=== PATIENT | female | born 1965 | race Caucasian/White ===

== ENCOUNTER 2022-11-05 10:06 | Emergency (ER) | payer OTHER, BC, SELFPAY ==
[2022-11-05 10:07] VITALS: BP 158/100; PULSE 98; RESP 18; TEMP 36.6; O2SAT 99; BMI 30.4
--- NOTE | 2022-11-05 10:21 | CT_ITS ---
FINAL REPORT CLINICAL HISTORY: neck pain, trauma FINDINGS: CT CERVICAL SPINE Axial CT images were performed through the cervical spine. Coronal and sagittal reformats were submitted and reviewed. This study was performed with techniques to keep radiation doses as low as reasonably achievable (ALARA). Individualized dose reduction techniques using automated exposure control or adjustment of mA and/or kV according to the patient's size were employed. FINDINGS: There is no acute fracture or subluxation. The vertebral alignment is normal. The prevertebral soft tissues are unremarkable. No significant spinal or neural foraminal canal stenosis is seen. There are mild degenerative changes. The facets are normally aligned. Limited images of the lung apices are unremarkable. IMPRESSION: No acute fracture. Reviewed, Interpreted and Dictated by Collin Long III, MD Transcribed by Brandon Aldana Authenticated and [facility]
--- NOTE | 2022-11-05 10:21 | CT_ITS ---
FINAL REPORT TECHNIQUE: Axial images were performed through the lumbar spine by computed tomography. Sagittal reconstruction images were also performed. This study was performed with techniques to keep radiation doses as low as reasonably achievable, (ALARA). Individualized dose reduction techniques using automated exposure control or adjustment of mA and/or kV according to the patient's size were employed. CLINICAL HISTORY: back injury, low back pain FINDINGS: Sagittal reconstruction images demonstrate no acute fracture or subluxation. There is leftward curvature. There are mild and moderate degenerative changes. Axial imaging demonstrates no definite central canal or neuroforaminal narrowing. Note is made of right hydronephrosis. IMPRESSION: No acute fracture. Reviewed, Interpreted and Dictated by Collin Long III, MD Transcribed by Brandon Aldana Authenticated and [facility]
--- NOTE | 2022-11-05 10:29 | PC.NURSE ---
pt to CT
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
[2022-11-05 10:47] VITALS: PULSE 93; O2SAT 97
--- NOTE | 2022-11-05 11:19 | PC.NURSE ---
rounded on pt at this time. no needs at this time.
[2022-11-05 12:10] VITALS: BP 137/93; PULSE 94; RESP 16; TEMP 36.6
== END 2022-11-05 12:12 | disposition home or self-care (01) ==
PROVIDERS: Emergency Provider Emergency Medicine; PCP Internal Medicine
DX: S16.1XXA Strain of muscle, fascia and tendon at neck level, initial encounter (principal); V49.40XA Driver injured in collision with unspecified motor vehicles in traffic accident, initial encounter
CPT/HCPCS: 72125; 72131; 99284; 99285

== ENCOUNTER 2024-08-21 08:07 | Emergency (ER) | payer BC, SELFPAY ==
[2024-08-21 08:20] VITALS: BP 154/86; PULSE 99; RESP 20; TEMP 36.6; O2SAT 97; BMI 30.9
[2024-08-21 08:31] LABS: UTC Strep Screen (Rapid) Negative (Negative)
--- NOTE | 2024-08-21 08:47 | ED_ITS ---
Discharge Plan Disposition Patient Disposition: Home, Self-Care Condition: Good Prescriptions Prescriptions: New fluticasone propionate 50 mcg/actuation spray,suspension 1 spray intranasal DAILY Qty: 16 0RF No Action metformin 500 mg tablet 500 mg PO DAILY hydrochlorothiazide 12.5 mg capsule 12.5 mg PO DAILY valsartan 40 mg Tablet 40 mg PO DAILY Referrals Follow up/Referrals: Taylor Beebe [Primary Care Provider] - See instructions Activity Restrictions/Add. Instructions Additional Instructions/Restrictions: No sign of a bacterial infection. Likely viral. Viruses can take 7-14 days to run their course. Nasal saline and bulb syringe or nose Naomy to remove nasal drainage to help with nasal congestion. Hard to eat, drink, sleep with nasal congestion so important to keep this cleaned out. Monitor temp. Tylenol or Motrin as needed for pain or fever Encourage fluids, water, Gatorade, Powerade, Pedialyte if infant/toddler/child Warm salt water gargles Warm fluids Sore throat lozenges Sleep elevated Humidifier/vaporizer Follow-up immediately for new or worsening symptoms or no noticeable improvement over the next 48-72 hours. Clinical Impressions Clinical Impression: Upper respiratory infection, viral Instructions Patient Instructions: DI for Viral Upper Respiratory Infection -- Adult, Common Cold Print Language Print Language: Spanish Discharge ED Provider: Jamie ([facility] [place] HPI General Stated complaint: sore throat itching in both ears Mode of Arrival: Ambulatory Source of Information: Patient Time Seen by Provider: 08/21/24 08:40 Description of Symptoms (Recalled from Triage Doc. by RN): EAR/THROAT PAIN HEENT Symptoms (Recalled from RN notes): Yes Resp Symptoms (Recalled from RN notes): No Skin Symptoms (Recalled from RN notes): No MS Symptoms (Recalled from RN notes): No Functional Status (Recalled from RN notes): WNL History of Present Illness Provider Complaint: 58-year-old female presents for sore throat and itchy full ears since . Related Data Home Medications ?Medication ?Instructions ?Recorded ?Confirmed hydrochlorothiazide 12.5 mg capsule 12.5 mg PO DAILY 08/21/24 08/21/24 metformin 500 mg tablet 500 mg PO DAILY 08/21/24 08/21/24 valsartan 40 mg tablet 40 mg PO DAILY 08/21/24 08/21/24 Previous Rx's ?Medication ?Instructions ?Recorded fluticasone propionate 50 1 spray intranasal DAILY #16 grams 08/21/24 mcg/actuation nasal spray,suspension Allergies Allergy/AdvReac Type Severity Reaction Status Date / Time No Known Allergies Allergy Verified 11/05/22 10:29 Worker's Comp Is this a Worker's Comp case?: No [facility] Disclaimer: The information contained in this section may have been updated after the patient was seen, as this information can be updated by other users. Social History , [employer]) Smoking Status: Never smoker alcohol intake: never current occupational status: other Travel in the last 8 weeks: Inside the [place] Have you lived/traveled outside [place] in past 30 days?: No Contact w/someone who lives/traveled outside [place] past 30 days?: No Exposure to someone with infectious disease in past 14 days?: No Do you have a fever (greater than 100.4 F or 38 C)?: No Have you tested positive for COVID-19: No Exposed to someone with COVID-19 in past 14 days?: No Do you have a sore throat?: Yes Do you have a cough?: No Do you have any weakness?: No Do you have any diarrhea?: No Are you experiencing any unusual bleeding?: No Do you have any muscle aches/pain?: No Do you have any abdominal pain?: No Are you experiencing loss of taste or smell?: No ROS Obtained: Yes Systems reviewed as appropriate & no additional complaints except as documented Constitutional Constitutional: Reports system reviewed and no additional complaints, except as documented and Reports as per HPI ENT Ears, Nose, Mouth, and Throat: Reports system reviewed and no additional complaints, except as documented, Reports as per HPI, Reports otalgia (Itching, full) and Reports sore throat Physical Exam General General appearance: alert and in no apparent distress Eye Eye exam: Present normal appearance ENT ENT exam: Present mucous membranes moist Expanded ENT Exam TM/Canal exam: Bilateral TM: effusion Throat exam: Present other (Postnasal drainage) Respiratory Respiratory exam: Present normal lung sounds bilaterally Cardiovascular Cardiovascular exam: Present regular rate and normal rhythm Neurological Exam Neurological exam: Present alert and oriented X3 Skin Skin exam: Present warm and intact Medical Decision Making Medical Records Medical records reviewed: Yes I reviewed the patient's medical records. Screening: Per USPSTF and CDC recommendations, given the prevalence of disease in our region, it is our hospital?s policy to screen for HIV and viral Hepatitis for all patients aged 18 and over and those with ongoing risk factors. Sang Inquiry Pt receiving controlled substance: No Vital Signs: 08/21/24 08:20 Temperature 97.9 F Temperature Source Oral Pulse Rate [Left Radial] 99 H Respiratory Rate 20 Blood Pressure [Left Arm] 154/86 H Blood Pressure Mean [Left Arm] 108 02 Sat by Pulse Oximetry 97 Lab Data Lab results reviewed: Yes I reviewed the patient's lab results. Lab Results 08/21/24 08:21: Strep Scn Rapid Clinic Negative Orders (Tests/Meds): ORDERS Category Date Time Status Strep Screen Confirmation Stat Micro 08/21/24 08:21 Received
[2024-08-21 08:52] VITALS: BP 154/86; PULSE 99; RESP 20; TEMP 36.6
== END 2024-08-21 08:53 | disposition home or self-care (01) ==
PROVIDERS: Emergency Provider Nurse Practitioner Family; PCP Internal Medicine
DX: J06.9 Acute upper respiratory infection, unspecified (principal)
CPT/HCPCS: 87880; 99212; G0381